=== PATIENT | female | born 1995 ===

== ENCOUNTER 2020-08-20 00:34 | Outpatient (CLI) | payer SELFPAY ==
[~2020-08-20] VITALS: Ht 157 cm; Wt 69.2 kg
[2020-08-20 00:57] LABS: BILIRUBIN,URINE NEGATIVE (NEGATIVE); CLARITY,URINE CLEAR; COLOR,URINE YELLOW; GLUCOSE, URINE (UA) NEGATIVE (NEGATIVE); KETONES,URINE NEGATIVE (NEGATIVE); LEUKOCYTE ESTERASE ,URINE NEGATIVE (NEGATIVE); NITRITE,URINE NEGATIVE (NEGATIVE); PROTEIN,URINE NEGATIVE (NEGATIVE)
[2020-08-20 01:03] VITALS: BP 122/81
[2020-08-20 01:07] LABS: BACTERIA,URINE TRACE /HPF; RBC,URINE 0-2 /HPF
[2020-08-20 01:58] VITALS: BP 107/71
[2020-08-20 03:01] VITALS: BP 107/71
== END 2020-08-20 02:56 | disposition home or self-care (01) ==
LOC: WSo 00:34 → LDRP 00:35 → WSo 02:56
PROVIDERS: ATTEND Family Medicine
DX: O42.90 Premature rupture of membranes, unspecified as to length of time between rupture and onset of labor, unspecified weeks of gestation (principal); Z3A.00 Weeks of gestation of pregnancy not specified
CPT/HCPCS: 81000; G0463; 99214

== ENCOUNTER → 2020-08-28 | Outpatient (CLI) | payer SELFPAY | END | disposition home or self-care (01) | LOC: PREOP 09:18 | PROVIDERS: ATTEND Family Medicine | DX: Z01.818 Encounter for other preprocedural examination (principal) ==

== ENCOUNTER 2020-09-02 06:00 | Inpatient (IN) | payer OTHER ==
[~2020-09-02] VITALS: Ht 160 cm; Wt 71.2 kg
[2020-09-02] VITALS (20 sets, daily range): BP systolic 99–126; BP diastolic 58–80
[2020-09-02] MEDS ORDERED: D5 LR IV SOLUTION 1,000 ML IV SCH (06:30)
[2020-09-02] MEDS ORDERED: OXYTOCIN PRE-MIX DRIP 500 ML IV SCH ×2 (06:30→09:30)
[2020-09-02] MEDS ORDERED: MINERAL OIL CONCENTRATE 99.9% 15 ML UDC TOP PRN (06:30)
[2020-09-02 06:51] LABS: BASOPHILS % (AUTO) 0 % (0-10); EOSINOPHILS # (AUTO) 0.1 10^3/uL (0.0-0.3); EOSINOPHILS % (AUTO) 1 % (0-10); HEMATOCRIT 42 % (35-52); HEMOGLOBIN 14.5 g/dL (11.5-16.0); LYMPHOCYTES # (AUTO) 1.4 10^3/uL (1.0-4.0); LYMPHOCYTES % (AUTO) 17 % (12-44); MEAN CORPUSCULAR HEMOGLOBIN 31 pg (25-34); MEAN CORPUSCULAR HGB CONC 35 g/dL (32-36); MEAN CORPUSCULAR VOLUME 90 fL (80-99); MEAN PLATELET VOLUME 12.8 fL (9.0-12.2); MONOCYTES # (AUTO) 0.6 10^3/uL (0.0-1.0); MONOCYTES % (AUTO) 7 % (0-12); NEUTROPHILS % (AUTO) 75 % (42-75); PLATELET COUNT 146 10^3/uL (130-400)
[2020-09-02] MEDS ORDERED: PREN-142 PO (08:22)
--- NOTE | 2020-09-02 08:22 | History & Physical-OB ---
OB - Chief Complaint & HPI Date/Time Date of Admission: Date of Admission: Sep 02, 2020 at 06:01 Date seen by a Provider: Sep 02, 2020 Time Seen by a Provider: 08:05 Chief Complaint/History OB-Reason for Admission/Chief: Induction of Labor Hx : 2 Hx Para: 1 Expected Date of Delivery: Aug 29, 2020 Gestational Age in Weeks: 40 Gestational Age in Days: 4 Indication for induction: post dates History of Labs O+, antibody neg, RI. HIV/HepB neg. RPR reactive, but FTA ab neg. GC/chalmydia neg. 1 hour glucola normal. GBS neg. Allergies and Home Medications Allergies Coded Allergies: No Known Drug Allergies (Unverified , 08/20/20) Patient Home Medication List Home Medication List Reviewed: Yes OB - History Hx of Present Care: Yes Ultrasounds: Normal mid trimester US Obstetrical Complications: None Information Induced Hypertension: No Maternal Gestational Diabetes: No Hemorrhage: No Obstetrical History Hx : 2 Hx Para: 1 Hx # Term Pregnancies: 1 Hx # Pregnancies: 0 Number of Living Children: 1 Hx Multiple Gestation: No Hx Ectopic : No Hx Stillbirth: No Hx Complication: No Hx Induced Hypertens: No Hx Maternal Gestational Diabet: No Hx Hemorrhage: No Delivery History Hx Dystocia: No Hx Forceps Assisted Delivery: No Hx Vacuum Extraction Assisted: No Hx Placenta Abnormality: No Hx Distress: No Hx Large For Gestational Age I: No Hx Small for Gestational Age I: No Hx Section: No Hx Vaginal Delivery Post C-Sec: No Hx Blood Disorders: No Adverse Rxn to Tranfusion: No Patient Past Medical History PMHx: Denies SurgHx: Denies Social History/Family History Alcohol Use: Denies Use Recreational Drug Use: No Smoking Cessation: Never smoker 2nd Hand Smoke Exposure: No Immunizations Rubella: immune RPR/VDRL: Negative GBS Status: Negative HBsAG: Negative OB - Admission Exam Physical Exam Vitals: Vital Signs 09/02/20 07:52 Temp 37.0 Pulse 85 Resp 16 Pulse Ox 98 O2 Delivery Room Air HEENT: NCAT Abdomen: Non tender Cervical Dilatation: 7cm Effacement: 75% Station: -1 Membranes: Ruptured (AROM at time of exam) Amniotic Fluid: Clear Heart Rate: 130's Accelerations: Accelerations Present Short Term Variability: Present Fpc Variability: Average (6-25) Contractions on Admission: < 5 Minutes Apart Intensity: Moderate Young Scoring Tool (Modified) Dilation (cm): 3-4cm (2) Effacement (%): 0-30% (0) Descent/Station: -2 (1) Cervix Consistency: Soft (2) Cervix Position: Middle/Mid-Position (1) Add 1 point for: Each previous vaginal delivery (1) Young Score: 7 Labs Laboratory Tests Test 09/02/20 06:30 Range/Units White Blood Count 8.0 4.3-11.0 10^3/uL Red Blood Count 4.62 3.80-5.11 10^6/uL Hemoglobin 14.5 11.5-16.0 g/dL Hematocrit 42 35-52 % Mean Corpuscular Volume 90 80-99 fL Mean Corpuscular Hemoglobin 31 25-34 pg Mean Corpuscular Hemoglobin Concent 35 32-36 g/dL Red Cell Distribution Width 13.1 10.0-14.5 % Platelet Count 146 130-400 10^3/uL Mean Platelet Volume 12.8 H 9.0-12.2 fL Immature Granulocyte % (Auto) 0 % Neutrophils (%) (Auto) 75 42-75 % Lymphocytes (%) (Auto) 17 12-44 % Monocytes (%) (Auto) 7 0-12 % Eosinophils (%) (Auto) 1 0-10 % Basophils (%) (Auto) 0 0-10 % Neutrophils # (Auto) 6.0 1.8-7.8 10^3/uL Lymphocytes # (Auto) 1.4 1.0-4.0 10^3/uL Monocytes # (Auto) 0.6 0.0-1.0 10^3/uL Eosinophils # (Auto) 0.1 0.0-0.3 10^3/uL Basophils # (Auto) 0.0 0.0-0.1 10^3/uL Immature Granulocyte # (Auto) 0.0 0.0-0.1 10^3/uL OB - Assessment/Plan/Diagnosis Assessment Admission Dx at 40w4d admitted for induction of labor for postdates, but appears to be in spontaneous labor on admit. GBS neg Admission Status: Inpatient Order (span 2 midnights) Reason for Inpatient Admission: Labor, delivery and course Plan Induction Method: MOOKIE PINON MD Sep 02, 2020 08:22
--- NOTE | 2020-09-02 09:07 | OB Labor & Delivery Record ---
Vag Delivery Note Vag Delivery Note Date of Delivery: 09/02/20 Preoperative Diagnosis: Meg Randolph is a 25 /Para 2 / 1, Gestational Age (wks)40with 4 days Postoperative Diagnosis: Same Surgeon: MOOKIE GUPTA Step Down Specialist: Freddie Burris MS2 Anesthesia: None Delivery Type: Spontaneous vaginal delivery Findings: Viable male , apgars 9/9, weight 8#0 Lacerations: bilateral periurethral, perineal abrasions Intact placenta with 3 vessel cord. No nuchal cord, body cord or shoulder dystocia Estimated Blood Loss: 250 ml Complications: None Condition: Stable Description of Procedure: The patient is a 25 year old female who presented for induction of labor for postdates, but appeared to be in labor on admission. She was admitted and informed consent was obtained. Her labor course was remarkable for rapid progression. She progressed to complete dilatation and began to push. She was then set up for delivery. The infant's head was delivered atraumatically in the CLARI position. The shoulders and remainder of the 's body were then delivered without difficulty. Upon delivery, the head was held below the level of the perineum and the mouth and nares were bulb suctioned. The cord was doubly clamped and cut and the infant was handed off to the pediatric staff. An intact placenta with 3-vessel cord delivered via Abiodun and there was found to be minimal bleeding.~ Vigorous fundal massage was performed and the fundus was found to be firm. IV oxytocin was given. Examination of the vagina and perineum revealed bilateral periurethral lacerations that were hemostatic and did not require repair and a perineal abrasion. Following the delivery, sponge, instrument and needle counts were correct. Mom and baby were both in stable condition in the labor suite. Vitals - Labs Vital Signs - I&O Vital Signs Date Time Temp Pulse Resp B/P (MAP) Pulse Ox O2 Delivery O2 Flow Rate FiO2 09/02/20 07:52 37.0 85 16 98 Room Air Labs Laboratory Tests 09/02/20 06:30: White Blood Count 8.0, Red Blood Count 4.62, Hemoglobin 14.5, Hematocrit 42, Mean Corpuscular Volume 90, Mean Corpuscular Hemoglobin 31, Mean Corpuscular Hemoglobin Concent 35, Red Cell Distribution Width 13.1, Platelet Count 146, Mean Platelet Volume 12.8H, Immature Granulocyte % (Auto) 0, Neutrophils (%) (Auto) 75, Lymphocytes (%) (Auto) 17, Monocytes (%) (Auto) 7, Eosinophils (%) (Auto) 1, Basophils (%) (Auto) 0, Neutrophils # (Auto) 6.0, Lymphocytes # (Auto) 1.4, Monocytes # (Auto) 0.6, Eosinophils # (Auto) 0.1, Basophils # (Auto) 0.0, Immature Granulocyte # (Auto) 0.0 MOOKIE GUPTA MD Sep 02, 2020 09:07
[2020-09-02] MEDS ORDERED: BENZOCAINE/MENTHOL (DERMOPLAST) 56 ML CAN TP PRN (09:30)
[2020-09-02] MEDS ORDERED: WITCH HAZEL(TUCKS) 40 EA JAR TOP PRN (09:30)
[2020-09-02] MEDS: IBUPROFEN 600 MG (MOTRIN) TAB PO SCH ×2 (10:23→18:55)
[2020-09-02] MEDS ORDERED: CATHETER FLUSH 10 ML SYR IV SCH ×2 (14:00)
[2020-09-02] MEDS: DOCUSATE SODIUM 100 MG (COLACE) CAP PO SCH (21:17)
[2020-09-03 00:37] VITALS: BP 111/73
[2020-09-03] MEDS: IBUPROFEN 600 MG (MOTRIN) TAB PO SCH ×3 (00:37→13:50)
[2020-09-03 03:35] VITALS: BP 109/66
[2020-09-03 06:44] LABS: BASOPHILS % (AUTO) 0 % (0-10); EOSINOPHILS # (AUTO) 0.1 10^3/uL (0.0-0.3); EOSINOPHILS % (AUTO) 1 % (0-10); HEMATOCRIT 40 % (35-52); HEMOGLOBIN 13.5 g/dL (11.5-16.0); LYMPHOCYTES % (AUTO) 25 % (12-44); MEAN CORPUSCULAR HEMOGLOBIN 31 pg (25-34); MEAN CORPUSCULAR HGB CONC 34 g/dL (32-36); MEAN CORPUSCULAR VOLUME 91 fL (80-99); MEAN PLATELET VOLUME 12.6 fL (9.0-12.2); MONOCYTES # (AUTO) 0.4 10^3/uL (0.0-1.0); MONOCYTES % (AUTO) 5 % (0-12); NEUTROPHILS # (AUTO) 5.6 10^3/uL (1.8-7.8); NEUTROPHILS % (AUTO) 68 % (42-75); PLATELET COUNT 142 10^3/uL (130-400); WHITE BLOOD COUNT 8.1 10^3/uL (4.3-11.0)
[2020-09-03] MEDS ORDERED: PRENATAL VITAMIN 1 EA TAB PO SCH (07:00)
--- NOTE | 2020-09-03 07:27 | Discharge Summary ---
Diagnosis/Chief Complaint Date of Admission Sep 02, 2020 at 06:01 Date of Discharge September 03, 2020 Admission Diagnosis Admission Diagnosis 1. Intrauterine at term 40 weeks 4 days gestation Discharge Diagnosis 1. Intrauterine at term 40 weeks 4 days gestation Chief Complaint/HPI Chief Complaint/HPI 25-year-old 2 now term 2 who initially presented to labor and delivery for induction of labor on September 02, 2020. It appeared that she was in labor upon presentation and quickly went on to deliver in the morning of September 02. Patient was at 40 weeks 4 days gestation upon presentation. Discharge Summary-OBS Procedures 1 Spontaneous vaginal delivery Discharge Physical Examination Allergies: Coded Allergies: No Known Drug Allergies (Unverified , 09/02/20) Vitals & I&Os Vital Sign - Last 12Hours Date Time Temp Pulse Resp B/P (MAP) Pulse Ox O2 Delivery O2 Flow Rate FiO2 09/03/20 03:35 36.0 74 18 109/66 (80) 97 Room Air General Appearance: No Acute Distress Respiratory: Clear to Auscultation Cardiovascular: Regular Rate Abdominal: Soft (with uterus firm) Hospital Course Was the Problem List Reviewed?: Yes following delivery she underwent routine care orders. She did not have any complications during the remainder of hospital stay. In the morning of September 03, 2020 her hemoglobin was 13.5 and this was compared to admission of 14.5. Her was present during the discussion with patient and interpreted for her. She was without any significant bleeding in the morning of September 03, 2020. She was ambulatory and tolerating regular diet. She denied any chest pain or any leg pain. She was felt ready for dismissal during the late morning of September 03. Labs Laboratory Tests 09/03/20 06:10: White Blood Count 8.1, Red Blood Count 4.37, Hemoglobin 13.5, Hematocrit 40, Mean Corpuscular Volume 91, Mean Corpuscular Hemoglobin 31, Mean Corpuscular Hemoglobin Concent 34, Red Cell Distribution Width 13.2, Platelet Count 142, Mean Platelet Volume 12.6H, Immature Granulocyte % (Auto) 0, Neutrophils (%) (Auto) 68, Lymphocytes (%) (Auto) 25, Monocytes (%) (Auto) 5, Eosinophils (%) (Auto) 1, Basophils (%) (Auto) 0, Neutrophils # (Auto) 5.6, Lymphocytes # (Auto) 2.0, Monocytes # (Auto) 0.4, Eosinophils # (Auto) 0.1, Basophils # (Auto) 0.0, Immature Granulocyte # (Auto) 0.0 Discharge Instructions to patient/family Please see electronic discharge instructions given to patient. Discharge Medications Reviewed and agree with Discharge Medication list on patient's Discharge Instruction sheet ITZEL SMITH MD Sep 03, 2020 07:27
--- NOTE | 2020-09-03 07:31 | Discharge Inst-Women's Service ---
Discharge Inst-Women's Serv Depart Medication/Instructions New, Converted or Re-Newed RX: Other Instructions May take [id number] ibuprofen 200 mg tablet. May take 2 or 3 tablets every 6 hours if needed for uterine cramps. Problems Reviewed?: Yes Consults/Follow Up Additional Follow Up: Yes (with Dr. Varner in 6 weeks) Activity Activity: Activity as Tolerated NO SMOKING: NO SMOKING Nothing Inside Vagina: No [place] (for 6 weeks) Diet Discharge Diet: Regular Diet Return to The Hospital For: as below Symptoms to Report to : Bleeding Excessive, Fever Over 101 Degrees F, Vaginal Discharge Foul For Any Problems or Questions: Contact Your Physician ITZEL SMITH MD Sep 03, 2020 07:31
[2020-09-03] MEDS: DOCUSATE SODIUM 100 MG (COLACE) CAP PO SCH (08:38)
[2020-09-03 08:40] VITALS: BP 103/70
== END 2020-09-03 14:35 | disposition home or self-care (01) | DRG 807 ==
LOC: LDRP 06:01
PROVIDERS: ADMIT Family Medicine; ATTEND Family Medicine
PROC: 10E0XZZ Delivery of Products of Conception, External Approach (ICD-10-PCS; principal; 2020-09-02)
DX: O48.0 Post-term pregnancy (principal); Z37.0 Single live birth; O71.82 Other specified trauma to perineum and vulva; Z3A.40 40 weeks gestation of pregnancy
CPT/HCPCS: 36415; 85025; 86850; 86900; 86901

== ENCOUNTER 2022-06-01 13:28 | Emergency (ER) | payer SELFPAY ==
[~2022-06-01] VITALS: Ht 157 cm; Wt 66.0 kg
[~2022-06-01 13:28] MED LIST: PREN-142 PO
--- NOTE | 2022-06-01 14:44 | ED GU-Female ---
General Chief Complaint: Abdominal/GI Problems Stated Complaint: ABD PAIN | 16 WEEKS Nursing Triage Note: Patient ambulatory to ER w c/o abdominal pain that radiates to the lower back. Patients brother in law speaks wolof for patient. Started this Am. Patient is 16 week . Source: patient, family () Exam Limitations: language barrier History of Present Illness Date Seen by Provider: Jun 01, 2022 Time Seen by Provider: 14:34 Initial Comments Patient is a 26-year-old G3, P2 who presents to the emergency department with a chief complaint of left-sided abdominal pain that radiated into her back. Patient states it started this morning and lasted about an hour and a half. She has an estimated due date of November 12. She has had no problems with this . No nausea, vomiting, fevers or chills. No concerns for COVID. Nothing made the pain any better, she did not take Tylenol. The pain went away spontaneously. Patient at this time is currently pain-free. She is wanting to make sure that the baby is okay. She gets her care through Dr. [facility] at [facility]. She denies burning with urination, abnormal vaginal discharge or vaginal bleeding. No trauma reported. History, review of systems, physical examination assisted by Yi aircraft structural repair mechanic via video interpreting Timing/Duration: this morning Severity/Quality: moderate, sharp Location: other (Left flank) Activities at Onset: none Associated Symptoms: denies symptoms Allergies and Home Medications Allergies Coded Allergies: No Known Drug Allergies (Unverified , 09/02/20) Patient Home Medication List Home Medication List Reviewed: Yes Vit No.124/Iron/FA ( Vitamin Tablet) 1 Each Tablet, 1 EACH PO, (Reported) Entered as Reported by: MOOKIE VARNER on 09/02/20 0822 Review of Systems Review of Systems Constitutional: see HPI EENTM: no symptoms reported Respiratory: no symptoms reported Cardiovascular: no symptoms reported Gastrointestinal: LUQ Genitourinary: no symptoms reported Expected Date of Delivery: Nov 12, 2022 Musculoskeletal: no symptoms reported Skin: no symptoms reported Psychiatric/Neurological: No Symptoms Reported Past Bufzapa-Mircwp-Cjjdwb Hx Patient Social History Tobacco Use?: No Substance use?: No Alcohol Use?: No Immunizations Up To Date First/Initial COVID19 Vaccinat: unknown COVID19 Vaccine Robot Operator: unknown Past Medical History Expected Date of Delivery: Nov 12, 2022 Adverse Reaction/Blood Tranf: No Physical Exam Vital Signs Vital Signs - First Documented 06/01/22 13:48 Temp 36.9 Pulse 96 Resp 18 B/P (MAP) 108/71 (83) Pulse Ox 99 O2 Delivery Room Air Capillary Refill : Less Than 3 Seconds Height, Weight, BMI Height: '" Weight: lbs. oz. kg; 26.00 BMI Method: General Appearance: WD/WN, no apparent distress HEENT: PERRL/EOMI Cardiovascular: regular rate, rhythm Respiratory: lungs clear, normal breath sounds, no respiratory distress, no accessory muscle use Gastrointestinal: normal bowel sounds, soft; No guarding; other (Very minimal tenderness to the left upper quadrant; fundus felt approximately 3 fingerbreadths below the umbilicus, nontender) Extremities: normal range of motion, normal inspection Neurologic/Psychiatric: alert, normal mood/affect, oriented x 3 Progress/Results/Core Measures Suspected Sepsis SIRS Temperature: Pulse: 96 Respiratory Rate: 18 Blood Pressure 108 /71 Mean: 86 Results/Orders Lab Results Laboratory Tests Test 06/01/22 14:25 Range/Units Urine Color YELLOW Urine Clarity CLEAR Urine pH 8.5 5-9 Urine Specific [place] 1.015 L 1.016-1.022 Urine Protein NEGATIVE NEGATIVE Urine Glucose (UA) NEGATIVE NEGATIVE Urine Ketones NEGATIVE NEGATIVE Urine Nitrite NEGATIVE NEGATIVE Urine Bilirubin NEGATIVE NEGATIVE Urine Urobilinogen 0.2 < = 1.0 MG/DL Urine Leukocyte Esterase NEGATIVE NEGATIVE Urine RBC (Auto) NEGATIVE NEGATIVE Urine RBC RARE /HPF Urine WBC NONE /HPF Urine Squamous Epithelial Cells 5-10 /HPF Urine Crystals NONE /LPF Urine Bacteria TRACE /HPF Urine Casts NONE /LPF Urine Mucus NEGATIVE /LPF Urine Culture Indicated NO My Orders Orders - ELGIN ARROYO MD Ua Culture If Indicated (06/01/22 14:38) Heart Tones (06/01/22 14:38) Vital Signs/I&O 06/01/22 06/01/22 13:48 14:13 Temp 36.9 Pulse 96 89 Resp 18 18 B/P (MAP) 108/71 (83) 105/77 (86) Pulse Ox 99 98 O2 Delivery Room Air Room Air Capillary Refill : Less Than 3 Seconds Blood Pressure Mean: 86 Departure Impression Primary Impression: Abdominal pain Qualified Codes: R10.12 - Left upper quadrant pain Additional Impression: 16 weeks gestation of Disposition: 01 HOME, SELF-CARE Condition: Stable Departure-Patient Inst. Decision time for Depature: 15:33 Referrals: MOOKIE VARNER MD (PCP/Family) Primary Care Physician Patient Instructions: - The Fifth Month Add. Discharge Instructions: Drink plenty of fluids to stay well-hydrated. You can take extra strength Tylenol, 2 tablets every 6 hours as needed for pain. If you have a return of pain especially with fever, vomiting or vaginal bleeding please come back to the emergency room for reevaluation Please keep your follow-up appointment with your OB doctor on Monday Marzena muchos lquidos para mantenerse leisa hidratado. Puede brian Tylenol extra jere, 2 tabletas cada 6 horas segn sea necesario para el dolor. Si vuelve el dolor, especialmente con fiebre, vmitos o sangrado vaginal, vuelva a la john de emergencias para aubrie reevaluacin. Acuda a ponce veronica de seguimiento con ponce obstetra el lunes. Copy Copies To 1: MOOKIE VARNER MD, KATHRYN M MD Jun 01, 2022 14:44
[2022-06-01 14:50] LABS: BILIRUBIN,URINE NEGATIVE (NEGATIVE); CLARITY,URINE CLEAR; COLOR,URINE YELLOW; GLUCOSE, URINE (UA) NEGATIVE (NEGATIVE); KETONES,URINE NEGATIVE (NEGATIVE); LEUKOCYTE ESTERASE ,URINE NEGATIVE (NEGATIVE); NITRITE,URINE NEGATIVE (NEGATIVE); PH,URINE 8.5 (5-9); PROTEIN,URINE NEGATIVE (NEGATIVE)
[2022-06-01 15:02] LABS: BACTERIA,URINE TRACE /HPF; RBC,URINE RARE /HPF
[2022-06-01 16:00] VITALS: BP 94/63
== END 2022-06-01 16:00 | disposition home or self-care (01) ==
LOC: EDUNIT# 13:28 → ER 13:33
DX: O26.892 Other specified pregnancy related conditions, second trimester (principal); R10.12 Left upper quadrant pain; Z3A.16 16 weeks gestation of pregnancy
CPT/HCPCS: 81000

== ENCOUNTER 2022-11-04 06:00 | Inpatient (IN) | payer MEDICAID ==
[2022-11-04] VITALS (30 sets, daily range): BP systolic 93–130; BP diastolic 51–84
[~2022-11-04] VITALS: Ht 157.5 cm; Wt 82.5 kg
[2022-11-04] MEDS ORDERED: MINERAL OIL 30 ML UDC TOP PRN (06:30)
[2022-11-04] MEDS ORDERED: D5 LR 1,000 ML IV SOLN 1,000 ML IV SCH (06:30)
[2022-11-04] MEDS ORDERED: LACTATED RINGERS 500 ML IV PRN (06:30)
[2022-11-04 06:38] LABS: LYMPHOCYTES # (AUTO) 1.5 10^3/uL (1.0-4.0)
[2022-11-04 06:40] LABS: BASOPHILS % (AUTO) 0 % (0-10); EOSINOPHILS # (AUTO) 0.1 10^3/uL (0.0-0.3); EOSINOPHILS % (AUTO) 1 % (0-10); HEMATOCRIT 41 % (35-52); HEMOGLOBIN 13.8 g/dL (11.5-16.0); LYMPHOCYTES % (AUTO) 26 % (12-44); MEAN CORPUSCULAR HEMOGLOBIN 30 pg (25-34); MEAN CORPUSCULAR HGB CONC 34 g/dL (32-36); MEAN CORPUSCULAR VOLUME 88 fL (80-99); MEAN PLATELET VOLUME 13.7 fL (9.0-12.2); MONOCYTES # (AUTO) 0.4 10^3/uL (0.0-1.0); MONOCYTES % (AUTO) 6 % (0-12); NEUTROPHILS # (AUTO) 3.7 10^3/uL (1.8-7.8); NEUTROPHILS % (AUTO) 66 % (42-75); PLATELET COUNT 129 10^3/uL (130-400); WHITE BLOOD COUNT 5.6 10^3/uL (4.3-11.0)
--- NOTE | 2022-11-04 06:42 | History & Physical-OB ---
OB - Chief Complaint & HPI Date/Time Date of Admission: Date of Admission: Nov 04, 2022 at 06:00 Date seen by a Provider: Nov 04, 2022 Time Seen by a Provider: 07:50 Chief Complaint/History OB-Reason for Admission/Chief: Induction of Labor Hx : 3 Hx Para: 2 Expected Date of Delivery: Nov 05, 2022 Gestational Age in Weeks: 39 Gestational Age in Days: 6 Indication for induction: other (risk reducing) History of Labs O positive, antibody neg, RI. HIV/hepB/RPR NR. GC/chlamydia neg. 1 hr GTTnml. GBS neg. Allergies and Home Medications Allergies Coded Allergies: No Known Drug Allergies (Unverified , 09/02/20) Patient Home Medication List Home Medication List Reviewed: Yes Vit No.124/Iron/FA ( Vitamin Tablet) 1 Each Tablet, 1 EACH PO, (Reported) Entered as Reported by: MOOKIE GUPTA on 09/02/20 0822 Last Action: Reviewed OB - History Hx of Present Ultrasounds: Normal mid trimester US Obstetrical Complications: None Medical Complications: None Information Induced Hypertension: No Maternal Gestational Diabetes: No Hemorrhage: No Obstetrical History Hx : 3 Hx Para: 2 Hx # Term Pregnancies: 2 Hx # Pregnancies: 0 Number of Living Children: 2 Hx Multiple Gestation: No Hx Stillbirth: No Hx Complication: No Hx Induced Hypertens: No Hx Maternal Gestational Diabet: No Hx Hemorrhage: No Delivery History Hx Dystocia: No Hx Forceps Assisted Delivery: No Hx Vacuum Extraction Assisted: No Hx Placenta Abnormality: No Hx Distress: No Hx Large For Gestational Age I: No Hx Small for Gestational Age I: No Hx Section: No Hx Vaginal Delivery Post C-Sec: No Hx Blood Disorders: No Adverse Rxn to Tranfusion: No Risk Variables Obstetrical Risk Variables: Not POA Anemia, Not POA Asthma, Not POA Autoimmune Disease, Not POA Bariatric Surgery, Not POA Bleeding Disorder, Not POA BMI >= 40, Not POA Cardiac Disease, Not POA Economic Housing Instabil, Not POA Gastrointestinal Disease, Not POA Gestational Diabetes, Not POA HIV, Not POA Hypertension, Not POA Chcf Anticoagulant U, Not POA Mental Health Disorder, Not POA Multiple , Not POA Neuromuscular Disease, Not POA Obstetrical VTE, Not POA Other Preeclampsia, Not POA Placenta Previa, Not POA Placental Abruption, Not POA Placenta Accreta Spectrum, Not POA Preexisting Diabetes, Not POA , Not POA Previous , Not POA Pulmonary Hypertension, Not POA Renal Disease, Not POA Severe Preeclampsia, Not POA Substance Abuse, Not POA Thyrotoxicosis Patient Past Medical History PMHx: Denies SurgHx: Denies Social History/Family History Alcohol Use: Denies Use Recreational Drug Use: No Smoking Cessation: Never smoker 2nd Hand Smoke Exposure: No Immunizations Influenza Vaccine Up-to-Date: Yes; Up-to-Date (04/2022) First/Initial COVID19 Vaccine: unknown Tetanus Booster (TDap): Less than 5yrs (09/14/22) Rubella: immune RPR/VDRL: Negative GBS Status: Negative HBsAG: Negative OB - Admission Exam Physical Exam Vitals: Vital Signs 11/04/22 06:12 Temp 36.6 Pulse 77 Resp 18 B/P (MAP) 117/84 (95) Pulse Ox 98 O2 Delivery Room Air HEENT: NCAT Abdomen: Gravid Extremities: Normal Cervical Dilatation: 4cm Effacement: 25% Station: Ballotable Membranes: Intact Heart Rate: 120's Accelerations: Accelerations Present Decelerations: No Decelerations Short Term Variability: Present Chcf Variability: Average (6-25) Contractions on Admission: 6-10 Minutes Apart Intensity: Mild Young Scoring Tool (Modified) Dilation (cm): 3-4cm (2) Effacement (%): 0-30% (0) Descent/Station: -3 (0) Cervix Consistency: Soft (2) Cervix Position: Anterior (2) Add 1 point for: Each previous vaginal delivery (1) (2) Young Score: 8 Labs Laboratory Tests Test 11/04/22 06:05 11/04/22 06:15 Range/Units OB - Assessment/Plan/Diagnosis Assessment Admission Dx Term intrauterine at 39 weeks Induction of labor planned Group B strep negative Fetus vertex position confirmed by bedside US Admission Status: Inpatient Order (span 2 midnights) Reason for Inpatient Admission: Labor, delivery and pospartum course Plan Plan: Induction Induction Method: per Pitocin Protocol MOOKIE GUPTA MD Nov 04, 2022 06:42
[2022-11-04] MEDS ORDERED: OXYTOCIN PRE-MIX DRIP 500 ML IV SCH ×2 (06:45→13:30)
[2022-11-04 06:46] LABS: SMEAR SCAN COMMENT YES
[2022-11-04 06:48] LABS: CLARITY,URINE CLEAR; COLOR,URINE YELLOW; GLUCOSE, URINE (UA) NEGATIVE (NEGATIVE); KETONES,URINE NEGATIVE (NEGATIVE); NITRITE,URINE NEGATIVE (NEGATIVE); PROTEIN,URINE NEGATIVE (NEGATIVE)
[2022-11-04 06:49] LABS: AMORPHOUS SEDIMENT,UR FEW AMOR PHOSPHATE /LPF; BACTERIA,URINE TRACE /HPF; BILIRUBIN,URINE NEGATIVE (NEGATIVE); LEUKOCYTE ESTERASE ,URINE NEGATIVE (NEGATIVE); RBC,URINE 0-2 /HPF
--- NOTE | 2022-11-04 11:51 | Labor Progress Note ---
Labor Progress Note Labor Progress Note Date Seen by Provider: Nov 04, 2022 Time Seen by Provider: 10:15 Subjective: Pt hurting with contractions. Objective: Cervical exam: Consistency: soft Position: anterior Presentation: vertex heart tones: 130s beats per minute, moderate variability, reactive Tocometer: 4 ctx/10 minutes Assessment/Plan: Meg Randolph is a 27 /Para 3 / 2,Gestational Age (wks)39 here for induction of labor. AROM at time of exam with clear fluid. CEFM/TOCO Continue pitocin Anesthesia: None Anticipate vaginal delivery. Vitals - Labs Vital Signs - I&O Vital Signs Date Time Temp Pulse Resp B/P (MAP) Pulse Ox O2 Delivery O2 Flow Rate FiO2 11/04/22 11:30 90 109/67 (81) 11/04/22 11:14 88 108/65 (79) 11/04/22 11:00 89 123/77 (92) 11/04/22 10:44 98 116/76 (89) 11/04/22 10:29 90 122/80 (94) 11/04/22 10:13 92 121/79 (93) 11/04/22 09:58 86 119/80 (93) 11/04/22 09:46 79 116/73 (87) 11/04/22 09:29 82 116/79 (91) 11/04/22 09:23 80 119/81 (94) 11/04/22 08:45 104 116/75 (89) 11/04/22 08:30 85 115/71 (86) 11/04/22 08:13 36.6 85 18 115/79 (91) 97 Room Air 11/04/22 06:12 36.6 77 18 98 Room Air 11/04/22 06:12 36.6 77 18 117/84 (95) 98 Room Air Labs Laboratory Tests 11/04/22 06:05: Urine Color YELLOW, Urine Clarity CLEAR, Urine pH 7.0, Urine Specific [place] 1.020, Urine Protein NEGATIVE, Urine Glucose (UA) NEGATIVE, Urine Ketones NEGATIVE, Urine Nitrite NEGATIVE, Urine Bilirubin NEGATIVE, Urine Urobilinogen 0.2, Urine Leukocyte Esterase NEGATIVE, Urine RBC (Auto) TRACEH, Urine RBC 0-2, Urine WBC 2-5, Urine Squamous Epithelial Cells 10-25H, Urine Crystals PRESENTH, Urine Amorphous Sediment FEW NAM PHOSPHATEH, Urine Bacteria TRACE, Urine Casts NONE, Urine Mucus NEGATIVE, Urine Culture Indicated NO 11/04/22 06:15: White Blood Count 5.6, Red Blood Count 4.58, Hemoglobin 13.8, Hematocrit 41, Mean Corpuscular Volume 88, Mean Corpuscular Hemoglobin 30, Mean Corpuscular Hemoglobin Concent 34, Red Cell Distribution Width 15.8H, Platelet Count 129L, Mean Platelet Volume 13.7H, Immature Granulocyte % (Auto) 0, Neutrophils (%) (Auto) 66, Lymphocytes (%) (Auto) 26, Monocytes (%) (Auto) 6, Eosinophils (%) (Auto) 1, Basophils (%) (Auto) 0, Neutrophils # (Auto) 3.7, Lymphocytes # (Auto) 1.5, Monocytes # (Auto) 0.4, Eosinophils # (Auto) 0.1, Basophils # (Auto) 0.0, Immature Granulocyte # (Auto) 0.0, Percent Immature Platelet Fraction 19.8H, Syphilis Total Antibody Negative, Smear Scan YES MOOKIE GUPTA MD Nov 04, 2022 11:51
[2022-11-04] MEDS ORDERED: BENZOCAINE/MENTHOL (DERMOPLAST) 56 ML CAN TP PRN (13:30)
[2022-11-04] MEDS ORDERED: WITCH HAZEL(TUCKS) 40 EA JAR TOP PRN (13:30)
--- NOTE | 2022-11-04 13:30 | OB Labor & Delivery Record ---
Vag Delivery Note Vag Delivery Note Date of Delivery: 11/04/22 Preoperative Diagnosis: Meg Randolph is a 27 /Para 3 / 2, Gestational Age (wks)39with 6 days Postoperative Diagnosis: Same Surgeon: MOOKIE GUPTA Anesthesia: Epidural Delivery Type: Findings: Viable male , apgars 5/9/9, weight 8#9 Lacerations: left labial abrasion Nuchal cord x 1, easily reduced, brief shoulder dystocia resolved with McRobert's and suprapubic pressure, Intact placenta with 3 vessel cord. Estimated Blood Loss: 200 ml Complications: None Condition: Stable Description of Procedure: The patient is a 27 year old female who presented for induction of labor. She was admitted and informed consent was obtained. Her labor course was unremarkable. She progressed to complete dilatation and began to push. She was then set up for delivery. The infant's head was delivered atraumatically in the CLARI position. A nuchal cord was reduced. The anterior shoulder did not deliver immediately, and mother was placed in McRobert's position, anterior shoulder did not deliver, suprapubic pressure applied from materal left and the anterior shoulder then delivered. The posterior shoulder and remainder of the 's body were then delivered without difficulty. Upon delivery, the was nonvigorous so cord was clamped and cut and handed off to nursery staff. He became vigorous shortly after being placed on warmer as they were preparing to start CPAP. An intact placenta with 3-vessel cord delivered via Abiodun and there was found to be minimal bleeding.~ Vigorous fundal massage was performed and the fundus was found to be firm. IV oxytocin was given. Examination of the vagina and perineum revealed a left labial abrasion not requiring repair. Following the delivery, sponge, instrument and needle counts were correct. Mom and baby were both in stable condition in the labor suite. Vitals - Labs Vital Signs - I&O Vital Signs Date Time Temp Pulse Resp B/P (MAP) Pulse Ox O2 Delivery O2 Flow Rate FiO2 11/04/22 11:30 90 109/67 (81) 11/04/22 11:14 88 108/65 (79) 11/04/22 11:00 89 123/77 (92) 11/04/22 10:44 98 116/76 (89) 8/18/23 10:29 90 122/80 (94) 11/04/22 10:13 92 121/79 (93) 11/04/22 09:58 86 119/80 (93) 11/04/22 09:46 79 116/73 (87) 11/04/22 09:29 82 116/79 (91) 11/04/22 09:23 80 119/81 (94) 11/04/22 08:45 104 116/75 (89) 11/04/22 08:30 85 115/71 (86) 11/04/22 08:13 36.6 85 18 115/79 (91) 97 Room Air 11/04/22 06:12 36.6 77 18 98 Room Air 11/04/22 06:12 36.6 77 18 117/84 (95) 98 Room Air Labs Laboratory Tests 11/04/22 06:05: Urine Color YELLOW, Urine Clarity CLEAR, Urine pH 7.0, Urine Specific Woodson 1.020, Urine Protein NEGATIVE, Urine Glucose (UA) NEGATIVE, Urine Ketones NEGATIVE, Urine Nitrite NEGATIVE, Urine Bilirubin NEGATIVE, Urine Urobilinogen 0.2, Urine Leukocyte Esterase NEGATIVE, Urine RBC (Auto) TRACEH, Urine RBC 0-2, Urine WBC 2-5, Urine Squamous Epithelial Cells 10-25H, Urine Crystals PRESENTH, Urine Amorphous Sediment FEW NAM PHOSPHATEH, Urine Bacteria TRACE, Urine Casts NONE, Urine Mucus NEGATIVE, Urine Culture Indicated NO 11/04/22 06:15: White Blood Count 5.6, Red Blood Count 4.58, Hemoglobin 13.8, Hematocrit 41, Mean Corpuscular Volume 88, Mean Corpuscular Hemoglobin 30, Mean Corpuscular Hemoglobin Concent 34, Red Cell Distribution Width 15.8H, Platelet Count 129L, Mean Platelet Volume 13.7H, Immature Granulocyte % (Auto) 0, Neutrophils (%) (Auto) 66, Lymphocytes (%) (Auto) 26, Monocytes (%) (Auto) 6, Eosinophils (%) (Auto) 1, Basophils (%) (Auto) 0, Neutrophils # (Auto) 3.7, Lymphocytes # (Auto) 1.5, Monocytes # (Auto) 0.4, Eosinophils # (Auto) 0.1, Basophils # (Auto) 0.0, Immature Granulocyte # (Auto) 0.0, Percent Immature Platelet Fraction 19.8H, Syphilis Total Antibody Negative, Smear Scan YES Shoulder Dystocia Note Shoulder Dystocia Start Time of Delivery of HEAD: 13:00 Time shoulder dystocia called: 13:00 HOB in lowered position: Yes Time of delivery of BODY: 13:01 Positional Maneuvers Dasha, Suprapubic: Left MOOKIE GUPTA MD Nov 04, 2022 13:30
[2022-11-04] MEDS: IBUPROFEN 600 MG TABLET PO PRN ×2 (13:45→19:57)
[2022-11-04] MEDS ORDERED: IBUP-844 PO (13:56)
[2022-11-04] MEDS ORDERED: CATHETER FLUSH 10 ML SYR IV SCH ×2 (14:00)
[2022-11-04] MEDS: ACETAMINOPHEN 500 MG TABLET PO PRN (16:06)
[2022-11-04] MEDS: DOCUSATE SODIUM 100 MG CAPSULE PO SCH (20:01)
[2022-11-05 00:35] VITALS: BP 104/69
[2022-11-05] MEDS: ACETAMINOPHEN 500 MG TABLET PO PRN (00:40)
[2022-11-05] MEDS: IBUPROFEN 600 MG TABLET PO PRN (04:02)
[2022-11-05 04:13] VITALS: BP 113/62
[2022-11-05 05:59] LABS: HEMOGLOBIN 11.9 g/dL (11.5-16.0); MEAN PLATELET VOLUME 13.7 fL (9.0-12.2)
[2022-11-05 06:01] LABS: BASOPHILS % (AUTO) 0 % (0-10); EOSINOPHILS # (AUTO) 0.1 10^3/uL (0.0-0.3); EOSINOPHILS % (AUTO) 1 % (0-10); HEMATOCRIT 35 % (35-52); LYMPHOCYTES # (AUTO) 1.5 10^3/uL (1.0-4.0); LYMPHOCYTES % (AUTO) 19 % (12-44); MEAN CORPUSCULAR HEMOGLOBIN 31 pg (25-34); MEAN CORPUSCULAR HGB CONC 34 g/dL (32-36); MEAN CORPUSCULAR VOLUME 90 fL (80-99); MONOCYTES # (AUTO) 0.5 10^3/uL (0.0-1.0); MONOCYTES % (AUTO) 7 % (0-12); NEUTROPHILS # (AUTO) 5.7 10^3/uL (1.8-7.8); NEUTROPHILS % (AUTO) 73 % (42-75); PLATELET COUNT 119 10^3/uL (130-400); WHITE BLOOD COUNT 7.8 10^3/uL (4.3-11.0)
[2022-11-05 10:51] VITALS: BP 113/71
[2022-11-05] MEDS: DOCUSATE SODIUM 100 MG CAPSULE PO SCH (10:52)
--- NOTE | 2022-11-05 12:32 | Postpartum Progress Note ---
Note Note Day #1 Subjective: Patient is without complaints. Ambulating, voiding. Tolerating a regular diet without nausea or vomiting. Normal lochia. Pain is well controlled with oral pain medications. Breast feeding. Patient reports pain to the LLE/calf since this morning. Worse with volar flexion of the foot. Denies swelling. Admits to mild SOA. Objective: Vital Signs 11/05/22 10:51 Temp 36.7 Pulse 94 Resp 18 B/P (MAP) 113/71 (85) Pulse Ox 99 O2 Delivery Room Air Physical Exam: General - Alert and oriented, no apparent distress Lungs - CTA; HRRR Abdomen - Soft, appropriately tender to palpation, non-distended, fundus firm at umbilicus Extremities - no edema, + Earnest's LLE, negative on RLE Assessment: post- day # 1, status post spontaneous vaginal delivery. Recovering well, hemodynamically stable LLE/calf pain Plan: Routine care. Encourage breast feeding. Encourage ambulation. Ferrous sulfate supplementation. LE doppler/US to rule out DVT, though low index of suspicion Plan for discharge today if normal US Vitals - Labs Vital Signs - I&O Vital Signs Date Time Temp Pulse Resp B/P (MAP) Pulse Ox O2 Delivery O2 Flow Rate FiO2 11/05/22 10:51 36.7 94 18 113/71 (85) 99 Room Air 11/05/22 04:13 36.8 82 18 113/62 (79) 100 Room Air 11/05/22 00:35 36.9 72 18 104/69 (81) 100 Room Air 11/04/22 20:00 37.1 89 18 113/70 (84) 98 Room Air 11/04/22 15:43 89 109/68 (82) 11/04/22 15:28 85 100/62 (75) 11/04/22 15:13 86 93/51 (65) 11/04/22 14:58 85 100/56 (71) 11/04/22 14:43 80 105/64 (78) 11/04/22 14:28 75 99/60 (73) 11/04/22 14:13 84 128/63 (84) 11/04/22 13:58 78 130/66 (87) 11/04/22 13:28 36.5 79 100/62 (75) 11/04/22 13:13 92 103/55 (71) 11/04/22 12:44 86 115/56 (75) 11/04/22 12:30 101 118/73 (88) I & O 11/05/22 07:00 Intake Total 1300 ml Balance 1300 ml Labs Laboratory Tests 11/05/22 05:50: White Blood Count 7.8, Red Blood Count 3.90, Hemoglobin 11.9, Hematocrit 35, Mean Corpuscular Volume 90, Mean Corpuscular Hemoglobin 31, Mean Corpuscular Hemoglobin Concent 34, Red Cell Distribution Width 15.9H, Platelet Count 119L, Mean Platelet Volume 13.7H, Immature Granulocyte % (Auto) 0, Neutrophils (%) (Auto) 73, Lymphocytes (%) (Auto) 19, Monocytes (%) (Auto) 7, Eosinophils (%) (Auto) 1, Basophils (%) (Auto) 0, Neutrophils # (Auto) 5.7, Lymphocytes # (Auto) 1.5, Monocytes # (Auto) 0.5, Eosinophils # (Auto) 0.1, Basophils # (Auto) 0.0, Immature Granulocyte # (Auto) 0.0, Percent Immature Platelet Fraction 20.5H TOMMIE OLEARY DO Nov 05, 2022 12:31
--- NOTE | 2022-11-05 14:39 | Diagnostic Imaging Report ---
EXAMINATION: US Lower Extremity Venous Duplex Left. TECHNIQUE: Multiple real-time grayscale images were obtained over the left lower extremity in various projections. Additional spectral analysis and color Doppler duplex images were also obtained. HISTORY: Swelling COMPARISON: None available. FINDINGS: The left common femoral vein, deep femoral vein, superficial femoral vein and popliteal vein are patent with normal mosher scale and doppler appearance. There is normal respiratory variation and augmentation. IMPRESSION: 1. No DVT of the left lower extremity. Dictated by: Dictated on workstation # [id number]
--- NOTE | 2022-11-05 14:59 | Short Stay Summary ---
Discharge Summary Hospital Course Final Diagnosis: s/p Hospital Course Date of Admission: Nov 04, 2022 at 06:00 Admission Diagnosis : at 39wk6d IOL Family Physician/Provider: Justine Varner MD Date of Discharge: 11/05/22 Discharge Diagnosis: s/p at 39w6d shoulder dystocia (less than 1 min) Hospital Course: post- day # 1, status post spontaneous vaginal delivery. Recovering well, hemodynamically stable LLE/calf pain Plan: Routine care. Encourage breast feeding. Encourage ambulation. Ferrous sulfate supplementation. LE doppler/US to rule out DVT, though low index of suspicion - US/doppler was noraml Labs and Pending Lab Test: Laboratory Tests 11/05/22 05:50: White Blood Count 7.8, Red Blood Count 3.90, Hemoglobin 11.9, Hematocrit 35, Mean Corpuscular Volume 90, Mean Corpuscular Hemoglobin 31, Mean Corpuscular Hemoglobin Concent 34, Red Cell Distribution Width 15.9H, Platelet Count 119L, Mean Platelet Volume 13.7H, Immature Granulocyte % (Auto) 0, Neutrophils (%) (Auto) 73, Lymphocytes (%) (Auto) 19, Monocytes (%) (Auto) 7, Eosinophils (%) (Auto) 1, Basophils (%) (Auto) 0, Neutrophils # (Auto) 5.7, Lymphocytes # (Auto) 1.5, Monocytes # (Auto) 0.5, Eosinophils # (Auto) 0.1, Basophils # (Auto) 0.0, Immature Granulocyte # (Auto) 0.0, Percent Immature Platelet Fraction 20.5H Home Meds Active Ibu (Ibuprofen) 600 Mg Tablet 600 Mg PO Q6HR PRN Reported Vitamin Tablet ( Vit No.124/Iron/FA) 1 Each Tablet 1 Each PO Assessment/Pt Instructions Follow up with Dr. Varner in 6wk Discharge Instructions Discharge Diet: No Restrictions Discharge Physical Examination General Appearance: Alert, Oriented X3, Cooperative Psych/Mental Status: Mood NL Allergies: Coded Allergies: No Known Drug Allergies (Unverified , 09/02/20) Discharge Summary Date of Admission Nov 04, 2022 at 06:00 Date of Discharge Discharge Date: Nov 05, 2022 TOMMIE OLEARY DO Nov 05, 2022 14:59
[2022-11-05 16:19] VITALS: BP 119/73
== END 2022-11-05 17:10 | disposition home or self-care (01) | DRG 807 ==
LOC: LDRP 06:00
PROVIDERS: ADMIT Family Medicine; ATTEND Family Medicine
PROC: 10E0XZZ Delivery of Products of Conception, External Approach (ICD-10-PCS; principal; 2022-11-04)
PROC: 3E033VJ Introduction of Other Hormone into Peripheral Vein, Percutaneous Approach (ICD-10-PCS; 2022-11-04)
DX: O69.81X0 Labor and delivery complicated by cord around neck, without compression, not applicable or unspecified (principal); Z37.0 Single live birth; Z3A.39 39 weeks gestation of pregnancy; O66.0 Obstructed labor due to shoulder dystocia; O70.0 First degree perineal laceration during delivery
CPT/HCPCS: 36415; 81000; 85025; 86780; 86850; 86900; 86901